=== PATIENT | female | born 1995 | race Two or more races ===

== ENCOUNTER 2019-03-08 22:36 | Emergency (ER) | payer SELFPAY ==
[~2019-03-08] VITALS: Ht 152.4 cm; Wt 63.5 kg
--- NOTE | 2019-03-08 23:35 | PHYS DOC ---
Past Medical History Past Medical History: No Pertinent History Past Surgical History: No Surgical History Alcohol Use: None Drug Use: None Adult General Chief Complaint Chief Complaint: BACK PAIN - NO INJURY [facility] HPI Patient is a 23 year old male whom is 2 months presents to the ED complaining of back pain and white vaginal discharge 2 days ago. This is her first . Unsure of last menstrual period. Describes her discharge as white and creamy. Denies vaginal bleeding, dysuria, hematuria, abdominal pain, nausea/vomiting, chest pain, shortness of breath, lower leg swelling or fever. Patient states she has follow-up with her [facility] [employer] on March 21. States she has not had an appointment yet. Review of Systems Review of Systems Constitutional: Denies fever or chills [] Eyes: Denies change in visual acuity, redness, or eye pain [] HENT: Denies nasal congestion or sore throat [] Respiratory: Denies cough or shortness of breath [] Cardiovascular: No additional information not addressed in HPI [] GI: Denies abdominal pain, nausea, vomiting, bloody stools or diarrhea [] : Complains of white vaginal discharge. Denies dysuria or hematuria [] Musculoskeletal: Complains of back pain. Denies joint pain [] Integument: Denies rash or skin lesions [] Neurologic: Denies headache, focal weakness or sensory changes [] All other systems were reviewed and found to be within normal limits, except as documented in this note. Current Medications Current Medications Current Medications Medications (Trade) Dose Ordered Sig/[facility] Start Time Stop Time Status Last Admin Dose Admin Acetaminophen (Tylenol) 650 mg 1X ONCE 03/08/19 23:45 03/08/19 23:46 DC 03/09/19 00:11 650 MG Ondansetron HCl (Zofran Odt) 4 mg 1X ONCE 03/08/19 23:45 03/08/19 23:46 DC 03/09/19 00:11 4 MG Allergies Allergies Allergies Coded Allergies Type Severity Reaction Last Updated Verified No Known Drug Allergies 03/08/19 No Physical Exam Physical Exam Constitutional: Well developed, well nourished, no acute distress, non-toxic appearance. [] HENT: Normocephalic, atraumatic Eyes: PERRLA, EOMI, conjunctiva normal, no discharge. [] Neck: Normal range of motion, no tenderness, supple, no stridor. [] Cardiovascular:Heart rate regular rhythm, no murmur [] Lungs & Thorax: Bilateral breath sounds clear to auscultation [] Abdomen: Bowel sounds normal, soft, no tenderness, no masses, no pulsatile masses. [] : normal external genitalia. OS closed. White creamy discharge. No adnexal tenderness. No lesions, erythema or swelling. Skin: Warm, dry, no erythema, no rash. [] Back: No tenderness, no CVA tenderness. [] Extremities: No tenderness, no cyanosis, no clubbing, ROM intact, no edema. [] Neurologic: Alert and oriented X 3, normal motor function, normal sensory f unction, no focal deficits noted. [] Psychologic: Affect normal, judgement normal, mood normal. [] Current Patient Data Vital Signs Vital Signs Date Time Temp Pulse Resp B/P (MAP) Pulse Ox O2 Delivery O2 Flow Rate FiO2 03/08/19 23:03 99.1 93 22 117/55 (75) 100 Room Air 99.1 Lab Values Laboratory Tests Test 03/08/19 22:45 03/08/19 23:13 03/08/19 23:35 Urine Collection Type Unknown Urine Color Yellow Urine Clarity Clear Urine pH 6.5 Urine Specific [place] 1.015 Urine Protein Negative mg/dL (NEG-TRACE) Urine Glucose (UA) Negative mg/dL (NEG) Urine Ketones (Stick) Negative mg/dL (NEG) Urine Blood Negative (NEG) Urine Nitrite Negative (NEG) Urine Bilirubin Negative (NEG) Urine Urobilinogen Dipstick 0.2 mg/dL (0.2 mg/dL) Urine Leukocyte Esterase Moderate (NEG) Urine RBC 0 /HPF (0-2) Urine WBC 11-20 /HPF (0-4) Urine Squamous Epithelial Cells Mod /LPF Urine Bacteria Mod /HPF (0-FEW) Urine Mucus Mod /LPF POC Urine HCG, Qualitative Hcg positive (Negative) White Blood Count 9.5 x10^3/uL (4.0-11.0) Red Blood Count 4.16 x10^6/uL (3.50-5.40) Hemoglobin 13.0 g/dL (12.0-15.5) Hematocrit 37.8 % (36.0-47.0) Mean Corpuscular Volume 91 fL (79-100) Mean Corpuscular Hemoglobin 31 pg (25-35) Mean Corpuscular Hemoglobin Concent 34 g/dL (31-37) Red Cell Distribution Width 13.8 % (11.5-14.5) Platelet Count 251 x10^3/uL (140-400) Neutrophils (%) (Auto) 65 % (31-73) Lymphocytes (%) (Auto) 25 % (24-48) Monocytes (%) (Auto) 8 % (0-9) Eosinophils (%) (Auto) 1 % (0-3) Basophils (%) (Auto) 1 % (0-3) Neutrophils # (Auto) 6.2 x10^3uL (1.8-7.7) Lymphocytes # (Auto) 2.4 x10^3/uL (1.0-4.8) Monocytes # (Auto) 0.7 x10^3/uL (0.0-1.1) Eosinophils # (Auto) 0.1 x10^3/uL (0.0-0.7) Basophils # (Auto) 0.0 x10^3/uL (0.0-0.2) Maternal Serum HCG Beta Subunit 247559 mIU/mL (0-5) H Sodium Level 139 mmol/L (136-145) Potassium Level 3.4 mmol/L (3.5-5.1) L Chloride Level 103 mmol/L (98-107) Carbon Dioxide Level 26 mmol/L (21-32) Anion Gap 10 (6-14) Blood Urea Nitrogen 8 mg/dL (7-20) Creatinine 0.6 mg/dL (0.6-1.0) Estimated GFR (Cockcroft-Gault) 126.2 BUN/Creatinine Ratio 13 (6-20) Glucose Level 89 mg/dL (70-99) Calcium Level 9.2 mg/dL (8.5-10.1) Total Bilirubin 0.3 mg/dL (0.2-1.0) Aspartate Amino Transferase (AST) 16 U/L (15-37) Alanine Aminotransferase (ALT) 36 U/L (14-59) Alkaline Phosphatase 44 U/L (46-116) L Total Protein 7.6 g/dL (6.4-8.2) Albumin 3.8 g/dL (3.4-5.0) Albumin/Globulin Ratio 1.0 (1.0-1.7) Laboratory Tests 03/08/19 23:35 Laboratory Tests 03/08/19 23:35 Microbiology 03/08/19 Wet Prep - Final, Complete EKG EKG [] Radiology/Procedures Radiology/Procedures []OB ultrasound less than 14 weeks to include transabdominal and transvaginal imaging 03/08/2019 CLINICAL HISTORY: Abdominal/pelvic pain. First trimester . TECHNIQUE: Using the distended urinary bladder as a sonographic window, a real-time ultrasound examination of the pelvis was performed. Additionally in an attempt to better evaluate the uterus and adnexa, a transvaginal ultrasound study was performed. Multiple images were obtained. FINDINGS: A gestational sac is seen within the endometrial canal of the body of the uterus. Within this gestational sac an embryonic pole is seen. The CRL of this embryonic pole measures 2.43 cm. This corresponds to an estimated gestational age by ultrasound of 9 weeks 1 day plus or minus a standard deviation of 7 days. Embryonic cardiac activity is seen within a heart rate of 171 bpm. The uterus is otherwise within normal limits. Both ovaries are within normal limits in size and echogenicity. The right ovary measures 3.7 x 3.0 x 2.2 cm in size. The left ovary measures 2.9 x 3.3 x 1.6 cm in size. No adnexal mass is seen. No free fluid is noted. IMPRESSION: Single living IUP with an estimated gestational age by ultrasound of 9 weeks 1 day plus or minus a standard deviation of 7 days. The estimated date of delivery by ultrasound is 10/10/2019. Course & Med Decision Making Course & Med Decision Making Pertinent Labs and Imaging studies reviewed. (See chart for details) []Discussed lab and imaging findings with patient. Patient's pain improved in the ED. States she's feeling much better. On reexamination, abdomen is soft nontender nondistended. No peritoneal signs. Tolerating by mouth. We'll treat for urinary tract infection outpatient. Discussed symptomatic treatment follow- up with [employer] [employer]. Patient has an appointment on March 21. Discussed reasons to return to the ED. Patient understands and agrees with plan. Family at bedside. Dragon Disclaimer Dragon Disclaimer This electronic medical record was generated, in whole or in part, using a voice recognition dictation system. Departure Departure Impression: Primary Impression: Back pain affecting Additional Impression: Urinary tract infection Disposition: HOME, SELF-CARE Condition: IMPROVED Referrals: UNKNOWN PCP NAME (PCP) BRENDAN PORTILLO Jr, MD Patient Instructions: Abdominal Pain During , - Urinary Tract Infection Scripts Nitrofurantoin Monohyd/M-Cryst (MACROBID 100 MG CAPSULE) 100 Mg Capsule 1 CAP PO BID, #14 CAP Prov: MALENA DE 03/09/19 Problem Qualifiers MALENA DE March 08, 2019 23:35
[2019-03-08 23:37] LABS: BILIRUBIN,URINE NEGATIVE (NEG); CLARITY,URINE CLEAR; COLOR,URINE YELLOW; NITRITE,URINE NEGATIVE (NEG); PH,URINE 6.5; PROTEIN,URINE NEGATIVE (NEG-TRACE); UROBILINOGEN,URINE 0.2 mg/dL (0.2 mg/dL)
[2019-03-08 23:42] LABS: BASO % 1 % (0-3); EOS # 0.1 x10^3/uL (0.0-0.7); EOS % 1 % (0-3); HEMATOCRIT 37.8 % (36.0-47.0); LYMPH # 2.4 x10^3/uL (1.0-4.8); LYMPH % 25 % (24-48); MEAN CORPUSCULAR HEMOGLOBIN 31 pg (25-35); MEAN CORPUSCULAR HGB CONC 34 g/dL (31-37); MEAN CORPUSCULAR VOLUME 91 fL (79-100); MONO # 0.7 x10^3/uL (0.0-1.1); MONO % 8 % (0-9); NEUT # 6.2 x10^3uL (1.8-7.7); NEUT % 65 % (31-73); PLATELET COUNT 251 x10^3/uL (140-400); RED BLOOD COUNT 4.16 x10^6/uL (3.50-5.40); RED CELL DISTRIBUTION WIDTH 13.8 % (11.5-14.5); WHITE BLOOD COUNT 9.5 x10^3/uL (4.0-11.0)
[2019-03-08 23:45] LABS: SQUAMOUS EPITHELIAL CELL,UR MOD /LPF
[2019-03-08] MEDS ORDERED: ONDANSETRON ODT 4 MG TAB.RAPDIS. PO ONE (23:45)
[2019-03-08] MEDS ORDERED: ACETAMINOPHEN 325 MG TABLET. PO ONE (23:45)
[2019-03-08 23:46] LABS: BACTERIA,URINE MOD /HPF (0-FEW); RBC,URINE 0 /HPF (0-2)
[2019-03-08 23:54] LABS: CALCIUM 9.2 mg/dL (8.5-10.1); CREATININE 0.6 mg/dL (0.6-1.0); GFR 126.2; POTASSIUM 3.4 mmol/L (3.5-5.1)
[2019-03-09] LABS: ALBUMIN 3.8 g/dL (3.4-5.0); TOTAL BILIRUBIN 0.3 mg/dL (0.2-1.0); TOTAL PROTEIN 7.6 g/dL (6.4-8.2)
[2019-03-09 00:30] VITALS: BP 111/58
--- NOTE | 2019-03-09 00:30 | RAD ---
OB ultrasound less than 14 weeks to include transabdominal and transvaginal imaging 03/08/2019 CLINICAL HISTORY: Abdominal/pelvic pain. First trimester . TECHNIQUE: Using the distended urinary bladder as a sonographic window, a real-time ultrasound examination of the pelvis was performed. Additionally in an attempt to better evaluate the uterus and adnexa, a transvaginal ultrasound study was performed. Multiple images were obtained. FINDINGS: A gestational sac is seen within the endometrial canal of the body of the uterus. Within this gestational sac an embryonic pole is seen. The CRL of this embryonic pole measures 2.43 cm. This corresponds to an estimated gestational age by ultrasound of 9 weeks 1 day plus or minus a standard deviation of 7 days. Embryonic cardiac activity is seen within a heart rate of 171 bpm. The uterus is otherwise within normal limits. Both ovaries are within normal limits in size and echogenicity. The right ovary measures 3.7 x 3.0 x 2.2 cm in size. The left ovary measures 2.9 x 3.3 x 1.6 cm in size. No adnexal mass is seen. No free fluid is noted. IMPRESSION: Single living IUP with an estimated gestational age by ultrasound of 9 weeks 1 day plus or minus a standard deviation of 7 days. The estimated date of delivery by ultrasound is 10/10/2019. Electronically signed by: Ricky Busch MD (03/09/2019 12:27 AM) [facility]
[2019-03-09] MEDS ORDERED: NITR100C62 PO (00:34)
[2019-03-09] MEDS ORDERED: cefTRIAXone IV Push 1 GM VIAL. IVP ONE (00:45)
== END 2019-03-09 01:04 | disposition home or self-care (01) ==
LOC: ER 22:36
DX: O23.41 Unspecified infection of urinary tract in pregnancy, first trimester (principal); M54.9 Dorsalgia, unspecified; N89.8 Other specified noninflammatory disorders of vagina; Z3A.09 9 weeks gestation of pregnancy
CPT/HCPCS: 36415; 76801; 76817; 80053; 81001; 81025; 84702; 85025; 96374; 99285; J0696; Q0111; Q0162